=== PATIENT | male | born 1955 | race Caucasian/White ===

== ENCOUNTER 2020-05-11 06:23 | Day surgery (SDC) | payer BC ==
[~2020-05-11] VITALS: Ht 182.9 cm; Wt 82.1 kg
[~2020-05-11 06:23] MED LIST: ASPIRIN-ACETAM1 EACH PO; CALCIUM 1,0001 EACH PO; FENO48 PO; IBUP800 PO; Multiple Vitam1 EAC1 PO
[2020-05-11] MEDS ORDERED: CODACE30 (07:00)
--- NOTE | 2020-05-11 08:23 | NUR ---
05/11/20 0823 Felicia Briscoe HYDROGEN PEROXIDE USED FOR PREP. POSITION VERIFIED BY SURGEON AND ANESTHESIA
== END 2020-05-11 10:34 | disposition home or self-care (01) ==
LOC: ORSCSDS 06:23
PROVIDERS: Orthopaedic Surgery
PROC: 0LQ24ZZ Repair Left Shoulder Tendon, Percutaneous Endoscopic Approach (ICD-10-PCS; principal; 2020-05-11 07:30)
PROC: 0RBK4ZZ Excision of Left Shoulder Joint, Percutaneous Endoscopic Approach (ICD-10-PCS; principal; 2020-05-11 07:30)
DX: M75.122 Complete rotator cuff tear or rupture of left shoulder, not specified as traumatic (principal); S46.112A Strain of muscle, fascia and tendon of long head of biceps, left arm, initial encounter; Z87.891 Personal history of nicotine dependence
CPT/HCPCS: C1713; J0171; J0330; J0690; J0735; J1885; J2250; J2704; J2795; J3010; J3370; J7120

== ENCOUNTER 2022-10-04 08:40 | Day surgery (SDC) | payer MEDICARE, OTHER ==
[~2022-10-04] VITALS: Ht 182.9 cm; Wt 82.2 kg
[~2022-10-04 08:40] MED LIST changes: +CODACE30
== END 2022-10-04 10:32 | disposition home or self-care (01) ==
LOC: ORSCSDS 08:40
PROVIDERS: Surgery
PROC: 0DBM8ZX Excision of Descending Colon, Via Natural or Artificial Opening Endoscopic, Diagnostic (ICD-10-PCS; principal; 2022-10-04 09:45)
DX: Z12.11 Encounter for screening for malignant neoplasm of colon (principal); Z86.010 Personal history of colon polyps; K63.5 Polyp of colon; D64.9 Anemia, unspecified; E78.1 Pure hyperglyceridemia; R16.1 Splenomegaly, not elsewhere classified; Z87.891 Personal history of nicotine dependence
CPT/HCPCS: 88305; J2704; J7120

== ENCOUNTER 2023-04-03 08:24 | Day surgery (SDC) | payer MEDICARE, OTHER ==
[~2023-04-03] VITALS: Ht 182.9 cm; Wt 81.1 kg
[2023-04-03 10:23] VITALS: BP 114/74
--- NOTE | 2023-04-03 11:05 | NUR ---
04/03/23 1105 Mian Steinberg IV REMOVED INTACT. [address].
== END 2023-04-03 10:48 | disposition home or self-care (01) ==
LOC: ORSCSDS 08:24
PROVIDERS: Orthopaedic Surgery
PROC: 01N50ZZ Release Median Nerve, Open Approach (ICD-10-PCS; principal; 2023-04-03 11:00)
DX: G56.03 Carpal tunnel syndrome, bilateral upper limbs (principal); G56.01 Carpal tunnel syndrome, right upper limb; I10 Essential (primary) hypertension; E78.5 Hyperlipidemia, unspecified; Z87.891 Personal history of nicotine dependence; J45.909 Unspecified asthma, uncomplicated; Z79.899 Other long term (current) drug therapy; F41.8 Other specified anxiety disorders; F32.A Depression, unspecified
CPT/HCPCS: J0171; J0690; J2250; J2704; J2795; J3010; J7120

== ENCOUNTER 2023-05-22 09:31 | Day surgery (SDC) | payer MEDICARE, OTHER ==
[~2023-05-22] VITALS: Ht 182.9 cm; Wt 80.7 kg
[2023-05-22 12:37] VITALS: BP 113/76
== END 2023-05-22 12:30 | disposition home or self-care (01) ==
LOC: ORSCSDS 09:31
PROVIDERS: Orthopaedic Surgery
PROC: 01N50ZZ Release Median Nerve, Open Approach (ICD-10-PCS; principal; 2023-05-22 10:30)
DX: G56.02 Carpal tunnel syndrome, left upper limb (principal); I10 Essential (primary) hypertension; Z87.891 Personal history of nicotine dependence; Z79.899 Other long term (current) drug therapy; R79.89 Other specified abnormal findings of blood chemistry
CPT/HCPCS: J0690; J2250; J2704; J7120

== ENCOUNTER 2024-09-02 10:04 | Day surgery (SDC) | payer MEDICARE, OTHER ==
[~2024-09-02] VITALS: Ht 182.9 cm; Wt 82.3 kg
[~2024-09-02 10:04] MED LIST changes: +Lactated Ringer's 1,000 ML IV ONE; +propofoL 50 ML IV ONE
[2024-09-02] MEDS ORDERED: CALCIUM CARBON200 M1 (11:02)
[2024-09-02] MEDS ORDERED: VITAMIN D310 MC1 (11:03)
[2024-09-02] MEDS ORDERED: FENO48 (11:03)
[2024-09-02] MEDS ORDERED: Children's Che1 EAC1 (11:03)
[2024-09-02] MEDS ORDERED: Lactated Ringer's 1,000 ML IV ONE (12:09)
[2024-09-02 13:19] VITALS: BP 102/73
== END 2024-09-02 13:15 | disposition home or self-care (01) ==
LOC: ORSCSDS 10:04
PROVIDERS: Internal Medicine Gastroenterology
PROC: 0DB48ZX Excision of Esophagogastric Junction, Via Natural or Artificial Opening Endoscopic, Diagnostic (ICD-10-PCS; principal; 2024-09-02 11:30)
DX: R13.10 Dysphagia, unspecified (principal); C16.0 Malignant neoplasm of cardia; Z86.018 Personal history of other benign neoplasm; E78.1 Pure hyperglyceridemia; Z87.891 Personal history of nicotine dependence; Z79.899 Other long term (current) drug therapy
CPT/HCPCS: 88305; 88360; J2704; J7120

== ENCOUNTER 2024-09-28 14:20 | Emergency (ER) | payer MEDICARE, OTHER ==
[~2024-09-28] VITALS: Ht 182.9 cm; Wt 79.4 kg
[~2024-09-28 14:20] MED LIST changes: +CALCIUM CARBON200 M1; +Children's Che1 EAC1; +FENO48; -Lactated Ringer's 1,000 ML IV ONE; +VITAMIN D310 MC1; -propofoL 50 ML IV ONE
[2024-09-28 14:33] VITALS: BP 129/73
[2024-09-28 15:10] LABS: BASOPHILS ABSOLUTE AUTO 0.19 K/mm3 (0.00-0.23); BASOPHILS PERCENT AUTO 2 % (0-2); EOSINOPHILS ABSOLUTE AUTO 0.02 K/mm3 (0.00-0.68); EOSINOPHILS PERCENT AUTO 0 % (0-6); Hematocrit 34.3 % (37.0-53.0); Hemoglobin 11.1 g/dL (13.5-17.5); IMMATURE GRAN ABSOLUTE AUTO 0.21 K/mm3 (0.00-0.10); IMMATURE GRAN PERCENT AUTO 2 % (0-1); LYMPHOCYTES ABSOLUTE AUTO 1.08 K/mm3 (0.84-5.20); LYMPHOCYTES PERCENT AUTO 10 % (21-46); MONOCYTES ABSOLUTE AUTO 0.57 K/mm3 (0.16-1.47); MONOCYTES PERCENT AUTO 5 % (4-13); Mean Corpuscular HGB 28.8 pg (26.0-34.0); Mean Corpuscular HGB Conc 32.4 g/dL (31.5-36.5); Mean Corpuscular Volume 89 fL (80-100); Mean Platelet Volume 9.4 fL (9.1-12.4); NEUTROPHILS ABSOLUTE AUTO 9.13 K/mm3 (1.96-9.15); NEUTROPHILS PERCENT AUTO 82 % (41-73); Platelet Count 354 K/mm3 (150-400); RDW Coefficient Variation 16.1 % (11.7-14.2); RDW Standard Deviation 51.7 fL (35.1-46.3); Red Blood Cell Count 3.85 M/mm3 (4.30-5.90)
[2024-09-28 15:25] LABS: Albumin/Globulin Ratio 0.8 (0.8-1.8); Bilirubin, Total 0.5 mg/dL (0.1-1.0); Bun/Creatinine Ratio 15.7 (12.0-20.0); Calcium, Blood 8.8 mg/dL (8.5-10.1); Creatinine, Blood 1.02 mg/dL (0.60-1.20); Potassium, Blood 4.1 mmol/L (3.5-5.5)
[2024-09-28 15:58] LABS: CORONAVIRUS COVID-19 AG Negative (NEGATIVE); INFLUENZA A AG Negative (NEGATIVE); INFLUENZA B AG Negative (NEGATIVE)
[2024-09-28] MEDS ORDERED: Ketorolac Tromethamine 30mg Vial IV ONE (16:00)
[2024-09-28] MEDS ORDERED: DiphenhydrAMINE HCl 50 MG/ML 1ML Vial IV ONE (16:00)
[2024-09-28] MEDS ORDERED: Prochlorperazine Edisylate 10 mg Vial IV ONE (16:00)
[2024-09-28] MEDS ORDERED: NS 1,000 ML IV SCH (16:00)
[2024-09-28] MEDS ORDERED: BENZ100A PO (16:04)
[2024-09-28] MEDS ORDERED: CODITUSSIN AC473 M1 PO (16:04)
[2024-09-28] MEDS ORDERED: Acetaminophen 500 MG Tab PO ONE (17:00)
== END 2024-09-28 17:07 | disposition home or self-care (01) ==
LOC: ER 14:20
PROVIDERS: Student in an Organized Health Care Education/Training Program
DX: J10.1 Influenza due to other identified influenza virus with other respiratory manifestations (principal); R51.9 Headache, unspecified; Z87.891 Personal history of nicotine dependence; Z79.899 Other long term (current) drug therapy
CPT/HCPCS: 70450; 80053; 85025; 87428-QW; 93005; 93010; 96361; 96374; 96375; 99284-25; A9270; J0780; J1200; J1885; J7030